=== PATIENT | female | born 1995 | race Caucasian/White ===

== ENCOUNTER 2022-10-11 17:01 | Emergency (ER) | payer BC ==
[2022-10-11] MEDS ORDERED: Sodium Chloride 0.9% 10 ML Syringe FLUSH PRN (17:42)
[2022-10-11] MEDS ORDERED: Loperamide 2 MG Tab PO ONE (17:43)
[2022-10-11] MEDS ORDERED: Ondansetron 4 MG/2 ML SDV IVPUSH ONE (17:43)
[2022-10-11 17:59] LABS: BASOPHILS ABSOLUTE AUTO 0.02 K/uL (0.00-0.20); BASOPHILS PERCENT AUTO 0.2 % (0.0-2.0); HEMATOCRIT 40.6 % (34.0-46.0); HEMOGLOBIN 14.3 g/dL (11.7-15.5); LYMPHOCYTES ABSOLUTE AUTO 0.57 K/uL (0.50-3.50); LYMPHOCYTES PERCENT AUTO 4.7 % (10.0-50.0); MEAN CORPUSCULAR HEMOGLOBIN 32.6 pg (28.2-33.3); MEAN CORPUSCULAR HGB CONC 35.2 g/dL (31.7-36.0); MEAN CORPUSCULAR VOLUME 92.7 fL (84.0-98.0); MONOCYTES ABSOLUTE AUTO 0.56 K/uL (0.00-1.00); MONOCYTES PERCENT AUTO 4.6 % (2.0-14.0); NEUTROPHILS PERCENT AUTO 90.5 % (45.0-80.0); PLATELET COUNT,PLT 245 K/uL (150-350); RED BLOOD CELL COUNT 4.38 M/uL (3.77-5.09); RED CELL DISTRIBUTION WIDTH 12.7 % (11.2-14.1); WHITE BLOOD CELL COUNT,WBC 12.1 K/uL (4.0-10.2)
[2022-10-11 18:13] LABS: ANION GAP 13.6 meq/L (7-15); BILIRUBIN TOTAL 0.6 mg/dL (0.2-1.0); CALCIUM 8.9 mg/dL (8.5-10.1); CARBON DIOXIDE,CO2 22.4 mmol/L (21.0-32.0); CREATININE 1.06 mg/dL (0.51-1.17); EST CRCL DRUG DOSING (CG) 71.73 mL/min; POTASSIUM,K 3.5 mmol/L (3.5-5.1); PROTEIN TOTAL,TP 8.2 g/dL (6.4-8.2)
[2022-10-11] MEDS ORDERED: Sodium Chloride 0.9% 1,000 ML IV ONE ×2 (18:14→19:15)
[2022-10-11 18:44] LABS: CORONAVIRUS COVID-19 NAA NEGATIVE (NEGATIVE); INFLUENZA A NAA NEGATIVE (NEGATIVE); INFLUENZA B NAA NEGATIVE (NEGATIVE); RESPIRATORY SYNCYTIAL VIR NAA NEGATIVE (NEGATIVE)
== END 2022-10-11 20:50 | disposition home or self-care (01) ==
LOC: LL.ED 17:01
DX: O99.281 Endocrine, nutritional and metabolic diseases complicating pregnancy, first trimester (principal); E86.0 Dehydration; O99.611 Diseases of the digestive system complicating pregnancy, first trimester; K52.9 Noninfective gastroenteritis and colitis, unspecified; Z20.822 Contact with and (suspected) exposure to COVID-19; Z3A.01 Less than 8 weeks gestation of pregnancy
CPT/HCPCS: 0241U; 36415; 80053; 85025; 96361; 96374; 99283; 99284; A9270; J2405; J7030; J3490